=== PATIENT | female | born 1980 | race Caucasian/White ===

== ENCOUNTER 2020-08-21 15:22 | Inpatient (IN) | payer OTHER ==
[~2020-08-21] VITALS: Ht 170.2 cm; Wt 83.9 kg
[2020-08-21 15:24] VITALS: BP 123/62
[2020-08-21 15:45] LABS: HEMOGLOBIN 8.8 gm/dL (12.0-15.0)
[2020-08-21 15:47] LABS: HEMATOCRIT 28.2 % (37.0-47.0); MCH 19.3 pg (26.0-34.0); MCHC 31.2 g/dL (28.0-37.0); MCV 61.8 fL (80.0-100.0); PLATELET COUNT 208 thou/uL (150-400); RBC 4.56 mil/uL (4.20-5.00); RDW 20.9 % (10.5-14.5); WBC 9.6 thou/uL (4.0-11.0)
[2020-08-21 15:56] LABS: URINE BILIRUBIN NEGATIVE (Negative); URINE BLOOD 1+ (Negative); URINE CLARITY CLEAR; URINE COLOR YELLOW; URINE GLUCOSE-RANDOM* NEGATIVE (Negative); URINE KETONES NEGATIVE (Negative); URINE PROTEIN (DIPSTICK) 2+ (Negative); URINE SPECIFIC GRAVITY 1.025 (1.005-1.035)
[2020-08-21 15:57] LABS: URINE LEUKOCYTES-REFLEX 2+ (Negative); URINE NITRITE-REFLEX POSITIVE (Negative)
[2020-08-21 15:59] LABS: CREATININE 1.1 mg/dL (0.6-1.0)
[2020-08-21 16:06] LABS: BACTERIA-REFLEX >30 Many /HPF (None Seen); URINE WBC-REFLEX >25 Many /HPF (0-5); WBC CLUMPS Moderate (None Seen)
[2020-08-21 16:06] LABS: ALBUMIN 3.4 g/dL (3.4-5.0); TOTAL BILIRUBIN 1.1 mg/dL (0.2-1.0); TOTAL PROTEIN 8.2 g/dL (6.4-8.2)
[2020-08-21 16:07] LABS: SQUAMOUS 0-3 Few /LPF (0-3); URINE RBC 0-2 Rare /HPF (0-2); YEAST-REFLEX Present (None Seen)
[2020-08-21 16:08] LABS: CASTS None Seen /LPF (None Seen); CRYSTALS None Seen /LPF (None Seen)
[2020-08-21 16:58] LABS: ABSOLUTE NEUTROPHILS 9.1 thou/uL (1.4-8.2)
[2020-08-21 17:02] LABS: ANISOCYTOSIS 2+; HYPOCHROMASIA 3+; MICROCYTES 3+; POLYCHROMASIA 1+
[2020-08-21 17:55] VITALS: BP 114/64
[2020-08-21 18:00] LABS: % SATURATION 3 % (20-39); IRON 11 ug/dL (50-170); TIBC 344 ug/dL (250-450)
[2020-08-21 18:27] LABS: FOLIC ACID 15.1 ng/mL (8.6-58.9)
[2020-08-21 18:30] VITALS: BP 103/60
--- NOTE | 2020-08-21 18:51 | NUR ---
ASSUMED PT CARE AT 1830. PT IS ALERT & ORIENTED X4. PT HAS IV SITE ON R AC 18 GAUGE AND L AC 20 GAUGE. PT IS ON ROOM AIR. PT IS CURRENTLY ON THE BED EATING DINNER, BED ON THE LOWEST POSITION, CALL LIGHT WITHIN REACH. WILL CONTINUE TO MONITOR PT. FOLLOW POC. 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
[2020-08-21 19:23] VITALS: BP 90/51
[2020-08-22 00:35] VITALS: BP 105/65
--- NOTE | 2020-08-22 01:27 | NUR ---
ASSESSED AT START OF SHIFT. PT A&OX4. C/O PAIN IN RLQ. PO HYDROCODONE GIVEN. ADMISSION DONE AND PT ORIENTED TO THE UNIT. IV INTACT AND FLUIDS INFUSING. CLEAR LUNGS SOUNDS. FOLLEY IN PLACE FOR RENTENSION. PT UP TO THE BATHROOM. WILL CONT TOMONITOR.
[2020-08-22 05:16] LABS: HEMATOCRIT 25.9 % (37.0-47.0); MCV 61.3 fL (80.0-100.0); PLATELET COUNT 189 thou/uL (150-400); RBC 4.22 mil/uL (4.20-5.00); RDW 21.5 % (10.5-14.5); WBC 14.7 thou/uL (4.0-11.0)
[2020-08-22 05:19] LABS: CALCIUM 8.4 mg/dL (8.5-10.1); CREATININE 0.8 mg/dL (0.6-1.0); MAGNESIUM 2.1 mg/dL (1.8-2.4); POTASSIUM 3.7 mmol/L (3.5-5.1)
[2020-08-22 07:20] VITALS: BP 113/76
[2020-08-22 12:00] LABS: ANISOCYTOSIS 2+; HYPOCHROMASIA 2+; MICROCYTES 2+; OVALOCYTES FEW
--- NOTE | 2020-08-22 12:18 | NUR ---
ASSUMED PT CARE AROUND 0700. PT ALERT X ORIENTED X4. ON ROOM AIR. UP AD JAMEY. IV LF AC/NS/125ML/HR AND RT AC SALINE LOCKED.. VEGA IN PLACE. FALL PRECAUTION IN PLACE. CALL LIGHT IN REACH. WILL CALL APPROPRIATELY. PAIN PARTIALLY CONTROLLED BY PAIN MEDS. WILL CONTINUE TO MONITOR.
[2020-08-22 16:15] VITALS: BP 122/79
--- NOTE | 2020-08-22 17:44 | NUR ---
RAPID RESPONSE CALLED FOR PT R/T NEW ONSET OF SUBSTERNAL CP. SEE FLOWSHEET FOR DETAILS.
[2020-08-22 20:02] VITALS: BP 109/80
--- NOTE | 2020-08-22 22:57 | NUR ---
ASSESSMENT COMPLETED. PT IN A PLEASANT MOOD. DENIES ANY CHEST PAIN OR SOA. PT WAS ABLE TO TAKE SHOWER. SHE IS UP AD JAMEY IN ROOM. PT IS AFEBRILE. DENIES ANY N/V. VEGA TO D/D-PT DENIES ANY DYSURIA.CONTINUES ON IVF AND ALSO TAKING ORAL.WILL CONTINUE WITH POC TILL EOS.
[2020-08-23 04:45] VITALS: BP 101/65
[2020-08-23 05:42] LABS: HEMATOCRIT 24.7 % (37.0-47.0); HEMOGLOBIN 7.6 gm/dL (12.0-15.0); MCH 18.8 pg (26.0-34.0); MCHC 30.7 g/dL (28.0-37.0); MCV 61.4 fL (80.0-100.0); PLATELET COUNT 206 thou/uL (150-400); RBC 4.02 mil/uL (4.20-5.00); RDW 21.7 % (10.5-14.5); WBC 12.9 thou/uL (4.0-11.0)
[2020-08-23 06:04] LABS: CALCIUM 8.2 mg/dL (8.5-10.1); CREATININE 0.8 mg/dL (0.6-1.0); MAGNESIUM 2.2 mg/dL (1.8-2.4); POTASSIUM 3.7 mmol/L (3.5-5.1)
--- NOTE | 2020-08-23 07:01 | EKG ---
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 : 1980 Requested By: Jeremy Daniel Order Number: [id number] MD: Josh Elaine Measurements Intervals [place] Rate: 87 P: 61 NC: 144 QRS: 17 QRSD: 96 T: 2 QT: 385 QTc: 463 Interpretive Statements Sinus rhythm Borderline T abnormalities, inferior leads Baseline wander in lead(s) III,V6 No previous ECG available for comparison Electronically Signed On 08-23-2020 7:01:35 CDT by Josh Elaine [email or web address] <ELECTRONICALLY SIGNED> By: Josh Elaine MD, [facility] 08/23/20 07 35 35 Josh Elaine MD, FACC /EPI
[2020-08-23 07:30] VITALS: BP 112/78
--- NOTE | 2020-08-23 08:20 | NUR ---
ASSUMED PT CARE AROUND 0710. PT ALERT X ORIENTED X4. ON ROOM AIR. IV LF AC/NS/125L/HR RT AC SALINE LOCKED. VEGA CATHETER IN PLACE. PAIN PARTIALLY CONTROLLED BY PAIN MEDS. CALL LIGHT IN REACH, BED IN LOW POSITION. WILL CALL APPROPRIATELY. UP AD JAMEY TO BATHROOM. WILL CONTINUE TO MONITOR.
--- NOTE | 2020-08-23 08:30 | NUR ---
ASSESSMENT: CM REVIEWED CHART AND SPOKE WITH PT. PT IS ALERT AND ORIENTED X4. PT WAS ADMITTED DUE TO RIGHT FLANK PAIN. PT HAS SEPSIS/PYLONEPHRITIS. PT IS CURRENTLY ON IV ANBX AND IS NOW AFEBRILE. PT REPORTS THAT SHE LIVES WITH HER SISTER/CHILDREN. PT REPORTS THAT SHE IS FULLY INDEPENDENT WITH ADLS AND AMBULATION. PT IS LISTED PATIENT PAY. PT REPORTS THIS IS CORRECT SHE STATES SHE JUST STARTED A JOB ABOUT 2 WEEKS AGO BUT HER INSURANCE HAS NOT KICKED IN. PT REPORTS THAT SHE HAS NO PCP. CM PROVIDED PATIENT WITH SAFETY NET CLINIC RESOURCES [facility] CON[facility]. PT REPORTS NO FURTHER NEEDS FROM CM AT THIS TIME. CM WILL CONTINUE TO FOLLOW TO ASSIST NEEDED.
[2020-08-23 08:49] VITALS: BP 112/78
[2020-08-23 10:43] LABS: ABSOLUTE NEUTROPHILS 11.5 thou/uL (1.4-8.2)
[2020-08-23 10:44] LABS: ANISOCYTOSIS 2+; HYPOCHROMASIA 3+; MICROCYTES 3+
[2020-08-23 10:45] LABS: OVALOCYTES FEW
[2020-08-23 16:10] VITALS: BP 122/83
[2020-08-23 19:25] VITALS: BP 100/66
--- NOTE | 2020-08-24 00:11 | NUR ---
ASSESSED AT START OF SHIFT PT RESTING IN BED. RATES PAIN 8/10. PO HYDROCODONE GIVEN. PT UP AD JAMEY TO THE BATHROOM. AFEBRILE. IV INTACT AND FLUIDS INFUSING. FOLLEY IN PLACE. PT HAD A SHOWER TONIGHT, STATED FEELING BETTER AFTERWARDS. DENIES N/V ON ASSESSMENT. CALL LIGHT AT REACH AND WILL CONT WITH POC TILL EOS.
[2020-08-24 04:07] VITALS: BP 90/48
[2020-08-24 04:51] LABS: HEMATOCRIT 23.6 % (37.0-47.0); HEMOGLOBIN 7.3 gm/dL (12.0-15.0); MCH 19.3 pg (26.0-34.0); MCHC 31.1 g/dL (28.0-37.0); MCV 61.9 fL (80.0-100.0); PLATELET COUNT 221 thou/uL (150-400); RBC 3.81 mil/uL (4.20-5.00); RDW 21.4 % (10.5-14.5); WBC 6.8 thou/uL (4.0-11.0)
[2020-08-24 05:03] LABS: CALCIUM 7.7 mg/dL (8.5-10.1); CREATININE 0.9 mg/dL (0.6-1.0); MAGNESIUM 1.8 mg/dL (1.8-2.4); POTASSIUM 3.4 mmol/L (3.5-5.1)
[2020-08-24 08:09] VITALS: BP 122/71
[2020-08-24 08:57] LABS: ABSOLUTE NEUTROPHILS 5.2 thou/uL (1.4-8.2)
[2020-08-24 08:58] LABS: HYPOCHROMASIA 2+; MICROCYTES 2+
[2020-08-24 08:59] LABS: ANISOCYTOSIS 2+
--- NOTE | 2020-08-24 11:45 | NUR ---
ASSUMED PT CARE THIS AM. PT IS ALERT & ORIENTED X4. PT HAS IV SITE ON L AC RUNNING NS @ 123ML/HR AND R AC SALINE LOCKED. PT HAS VEGA ON. PT IS ON ROOM AIR. PAIN C/O OF PAIN AND GIVEN PAIN MEDICATION PER REQUEST. INFORMED DR THAT PT WANTED TO TALK TO DR. PT ON THE BED SLEEPING, BED ON THE LOWEST POSITION, SIDE RAILS UP, CALL LIGHT WITHIN REACH. WILL CONTINUE TO MONITOR PT. FOLLOW POC.
--- NOTE | 2020-08-24 13:36 | NUR ---
ON-GOING ASSESSMENT: CM REVIEWED CHART. PT REMAINS ON IV ANBX. PTS HEMOGLOBIN IS 7.3 AND GI WAS CONSULTED. STOOK OCCULT WAS ORDERED AND IF POSTIVE PATIENT MAY NEED AN EGD. POSSIBLE DISCHARGE OVER THE WEEKEND IF PATIENT IMPROVES. CM PROVIDED PATIENT WITH SAFETY NET CLINIC/OUTPATIENT RESOURCES. PT REPORTS NO FURTHER NEEDS FROM CM.
[2020-08-24 16:32] VITALS: BP 116/68
[2020-08-24 20:40] VITALS: BP 116/84
[2020-08-25 03:58] VITALS: BP 122/81
--- NOTE | 2020-08-25 04:30 | NUR ---
ASSUMED PT CARE AT 1900.PT C/O R FLENK PAIN.MAANGED WITH MED.PT UP ADLIB IN HER ROOM TO THE BR.PT STILL NEED STOOL FOR OCCULT BLOOD,NO BM NOTED THIS SHIFT.PT CONT ON IVF ORDERED.PT ABLE TO MAKE HER NEEDS KNOWN.CALL LIGHT WITHIN REACH.
[2020-08-25 05:41] LABS: HEMATOCRIT 23.9 % (37.0-47.0); HEMOGLOBIN 7.5 gm/dL (12.0-15.0); MCH 19.3 pg (26.0-34.0); MCHC 31.5 g/dL (28.0-37.0); MCV 61.2 fL (80.0-100.0); RBC 3.9 mil/uL (4.20-5.00); RDW 21.2 % (10.5-14.5); WBC 5.9 thou/uL (4.0-11.0)
[2020-08-25 08:00] VITALS: BP 125/83
[2020-08-25] MEDS ORDERED: HYDROCODON-ACE1 EAC7 PO (12:00)
[2020-08-25] MEDS ORDERED: CEFUROXIME500 MG PO (12:00)
[2020-08-25] MEDS ORDERED: FEOSOL325 M1 PO (12:00)
--- NOTE | 2020-08-25 12:38 | NUR ---
Assumed pt care this am, VS stable PO followed. Pain is managed with medication.Medications given as per emar, POC followed with no signs or verblizations of distress noted. No nausea or vomiting noted. DC instructionss given to pt, prescriptions sent to the pharmacy. List of names of clinics for pt to follow up given as well. IV removed. Awaiting hot die picker.
== END 2020-08-25 13:29 | disposition home or self-care (01) | DRG 871 ==
LOC: ER 15:22 → EROBS 17:15 → 4S 18:25
PROVIDERS: Emergency Medicine; Nurse Practitioner; ADMIT Internal Medicine; ATTEND Internal Medicine
DX: A41.51 Sepsis due to Escherichia coli [E. coli] (principal); N17.0 Acute kidney failure with tubular necrosis; N12 Tubulo-interstitial nephritis, not specified as acute or chronic; N39.0 Urinary tract infection, site not specified; D64.9 Anemia, unspecified; E86.0 Dehydration; D50.9 Iron deficiency anemia, unspecified; Z90.49 Acquired absence of other specified parts of digestive tract; B96.20 Unspecified Escherichia coli [E. coli] as the cause of diseases classified elsewhere; Z79.899 Other long term (current) drug therapy
CPT/HCPCS: 10195

== ENCOUNTER 2020-12-04 15:03 | Emergency (ER) | payer BC ==
[~2020-12-04] VITALS: Ht 170.2 cm; Wt 81.2 kg
[~2020-12-04 15:03] MED LIST: CEFUROXIME500 MG PO; FEOSOL325 M1 PO; HYDROCODON-ACE1 EAC7 PO
[2020-12-04 15:46] LABS: URINE BILIRUBIN NEGATIVE (Negative); URINE BLOOD NEGATIVE (Negative); URINE CLARITY CLEAR; URINE COLOR YELLOW; URINE GLUCOSE-RANDOM* NEGATIVE (Negative); URINE KETONES NEGATIVE (Negative); URINE NITRITE-REFLEX NEGATIVE (Negative); URINE PROTEIN (DIPSTICK) NEGATIVE (Negative); URINE SPECIFIC GRAVITY 1.015 (1.005-1.035); URINE UROBILINOGEN 0.2 E.U./dl (0.2-1.0)
[2020-12-04 15:47] LABS: URINE LEUKOCYTES-REFLEX 2+ (Negative)
[2020-12-04 16:00] LABS: CASTS None Seen /LPF (None Seen); SQUAMOUS 0-3 Few /LPF (0-3); URINE RBC None Seen /HPF (NONE SEEN); URINE WBC-REFLEX 0-5 Rare /HPF (0-5)
[2020-12-04 16:01] LABS: BACTERIA-REFLEX 1-9 Few /HPF (None Seen); CRYSTALS None Seen /LPF (None Seen)
[2020-12-04 16:58] LABS: ABSOLUTE NEUTROPHILS 3.8 thou/uL (1.4-8.2); BASOPHILS 0.6 % (0.0-2.0); EOSINOPHILS 0.8 % (0.0-3.0); HEMATOCRIT 33.7 % (37.0-47.0); HEMOGLOBIN 10.6 gm/dL (12.0-15.0); LYMPHOCYTES 24.3 % (24.0-44.0); MCHC 31.5 g/dL (28.0-37.0); MCV 69.7 fL (80.0-100.0); MONOCYTES 8.6 % (1.0-8.0); PLATELET COUNT 278 thou/uL (150-400); POLYS 65.7 % (36.0-66.0); RBC 4.83 mil/uL (4.20-5.00); RDW 19.5 % (10.5-14.5); WBC 5.8 thou/uL (4.0-11.0)
[2020-12-04 17:10] LABS: CALCIUM 9.3 mg/dL (8.5-10.1); CREATININE 0.8 mg/dL (0.6-1.0); POTASSIUM 3.9 mmol/L (3.5-5.1)
[2020-12-04 17:16] LABS: ALBUMIN 3.9 g/dL (3.4-5.0); TOTAL BILIRUBIN 0.4 mg/dL (0.2-1.0); TOTAL PROTEIN 8.6 g/dL (6.4-8.2)
[2020-12-04] MEDS ORDERED: NORCO5 PO (17:39)
[2020-12-04] MEDS ORDERED: CEFUROXIME500 MG PO (17:39)
[2020-12-04 17:49] VITALS: BP 123/88
== END 2020-12-04 17:49 | disposition home or self-care (01) ==
LOC: ER 15:03
PROVIDERS: Physician Assistant
DX: N12 Tubulo-interstitial nephritis, not specified as acute or chronic (principal); Z90.49 Acquired absence of other specified parts of digestive tract